=== PATIENT | female | born 2000 | race Two or more races ===

== ENCOUNTER 2024-02-07 15:32 | Emergency (ER) | payer MEDICAID, SELFPAY ==
[2024-02-07 15:37] VITALS: PULSE 99; O2SAT 99; BMI 26.2
[2024-02-07 15:39] VITALS: PULSE 77; RESP 16; TEMP 36.8; O2SAT 100; BMI 22.4
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
== END 2024-02-07 18:40 | disposition home or self-care (01) ==
PROVIDERS: Emergency Provider Emergency Medicine; PCP Family Medicine
DX: S09.90XA Unspecified injury of head, initial encounter (principal); R07.9 Chest pain, unspecified; V89.2XXA Person injured in unspecified motor-vehicle accident, traffic, initial encounter
CPT/HCPCS: 70450; 71046; 99284

== ENCOUNTER 2024-05-03 15:38 | Emergency (ER) | payer MEDICAID, SELFPAY ==
[2024-05-03 15:47] VITALS: BP 151/86; PULSE 72; PULSE 75; RESP 16; RESP 18; TEMP 37.1; O2SAT 100; O2SAT 98; BMI 28.3
--- NOTE | 2024-05-03 15:50 | PD.EDSUICD ---
ED Psych RME/HPI General Chief Complaint: Suicidal Stated Complaint: SI Time Seen by Provider: 05/03/24 15:45 Arrival date/time: 05/03/24 15:38 23 year old female with past medical history of Depression, present to emergency room via EMS for medical evaluation. per EMS report patient has a plan to harm self by taking her depression medication. pt is on a 5150 hold. per patient report recent change in medication paxil to zoloft last week. SEVERITY: Symptoms are described as being severe with limitations on activities of daily living CONTEXT: The patient is unable to identify any inciting events. DURATION/TIMING: The symptoms started approximately 1 day ASSOCIATED SYMPTOMS: The patient is unable to identify any other associated symptoms. MODIFYING FACTORS: The patient is unable to identify any alleviating or aggravating symptoms. PERTINENT ROS: no chest pain/shortness of breath no nausea,vomiting, diarrhea, no dizziness/headache no rash no loc/syncope episode REVIEW OF SYSTEMS: See History of Present Illness - with the exception of those mentioned in the history of present illness, all other systems reviewed and reported as negative GENERAL: In general the patient is awake, interactive, in an emergency department gurney, wearing a hospital gown. HEAD/EARS/EYES/NOSE/THROAT: normo-cephalic, atraumatic, extra-ocular eye movements are intact, pupils are equal round and reactive to light, mucus membranes are moist, no nystagmus, anicteric, palpebral conjunctiva is pink. Thyroid is not tender, not enlarged and not nodular, no carotid bruit, no jugular venous distension, trachea is midline, uvula unremarkable, oropharyngeal cavity unremarkable. CARDIOVASCULAR: regular rate and regular rhythm, no murmurs/rubs or gallops, normal S1 and S2, heart sounds are not distant, strong pulses in all four extremities that are equal and symmetric bilateral upper and lower extremities. CHEST/PULMONARY: normal chest rise and fall, good air movement, clear to auscultation bilaterally without rhonchi, rales or wheezing, normal inspiratory to expiratory ratios without evidence of respiratory distress. ABDOMEN: soft, not tender, no rebound, no guarding, normal bowel sounds that are present in all four quadrants, no pulsatile masses, BACK: no c/t/l spine tenderness, normal range of motion without reproducible pain, no costoverterbral angle tenderness. NEUROLOGICAL: cranio-facial features are symmetric, speech is clear, no obvious word finding difficulties and answers to questions are provided without hesitation or difficulty, normal motor and sensory function of the bilateral upper and lower extremities that are equal and symmetric left and right, no evidence of cerebellar dysfunction. Extremity: no tenderness to palpation over the long bones or large joints of the bilateral upper and lower extremities, no joint swelling, no joint erythema, no signs of trauma, no unilateral leg swelling and no peripheral edema. SKIN: warm, dry, well-perfused, no jaundice, no rash, normal capillary refill, no telangiectasias or petechia. PSYCH: tearful, cooperative, abnormal affect and behavior, thought process abnormal. Related Data Home Medications ?Medication ?Instructions ?Recorded ?Confirmed prenat.vits,liv,ivb-[id number] 1 tab PO QDAY 09/27/20 03/18/21 Previous Rx's ?Medication ?Instructions ?Recorded amoxicillin 875 mg-potassium 1 tab PO BID #14 tabs 06/24/23 clavulanate 125 mg tablet ibuprofen 800 mg tablet 800 mg PO TID PRN pain #30 tabs 06/24/23 tramadol 50 mg tablet 50 mg PO TID PRN pain #20 tabs 06/26/23 ibuprofen 600 mg tablet 600 mg PO Q6H #30 tabs 02/07/24 Allergies Allergy/AdvReac Type Severity Reaction Status Date / Time No Known Allergies Allergy Verified 02/07/24 15:44 Course Course Course Narrative: basic labs, drug/alcohol hcg crisis evaluation 5150 hold Thoughts are linear and organized, and patient has no AH, VH, or HI. Prior suicide attempt by 5 years ago being seen at [facility]? Prior Psychiatric Hospitalizations:no? Clinically patient displays no overt toxidrome; they are well appearing, with low suspicion for toxic ingestion given history and exam. Thoughts unlikely 2/2 anemia, hypothyroidism, infection, or ICH. Consult:?Psychiatry to evaluate patient for potential hold for danger to self. Disposition: 5150 hold crisis to evaluated after medical clearance? Quality Measures none Orders Category Date Time Status Psychosocial assessment ONCE Care 05/03/24 15:49 Active Diet Regular Diet 05/03/24 Dinner Active Acetaminophen Stat Lab 05/03/24 15:56 Completed Alcohol, Blood Medical Stat Lab 05/03/24 15:56 Completed Basic Metabolic Panel Stat Lab 05/03/24 15:56 Completed CBC Stat Lab 05/03/24 15:56 Completed Drug Screen,Urine Stat Lab 05/03/24 16:03 Completed HCG Qualitative,Urine Stat Lab 05/03/24 16:03 Completed Salicylate Stat Lab 05/03/24 15:56 Completed Reevaluation(s) Reevaluation #1: Accepted to [facility] per social services assistant? Vital Signs Vital signs: Vital Signs Temperature 98.7 F 05/03/24 15:47 Pulse Rate 75 05/03/24 15:47 Respiratory Rate 18 05/03/24 15:47 Blood Pressure 151/86 H 05/03/24 15:47 Pulse Oximetry (%) 100 05/03/24 15:47 Oxygen Delivery Method Room Air 05/03/24 15:47 Psych Patient data External records reviewed:: [facility] previous records Clinical information provided by:: patient and EMS Social determinants that could affect healthcare access:: mental health Patient has the following chronic illnesses:: depression, PTSD How is presenting disease/condition affected by chronic disease/condition?: exacerbated by Evaluation data The following diagnostics were reviewed and interpreted by me:: lab results Lab and/or radiology exams considered but not ordered:: none Interpretation Summary: medically cleared basic labs, drug wnl Medications / Prescriptions Medications or Prescriptions considered but not ordered:: none Medication administrations:: none Consultations Consultation(s) initiated? (list below): Yes Consultation #1 (Physician, Specialty, Details): crisis is evaluating patient Diagnosis Psych Differential Diagnosis: acute psychosis, suicidal ideation, bipolar disorder, depression, drug-induced psychotic disorder and acute anxiety Most likely diagnosis given after review of the tests above:: SI, psychosis Admission Indicated Admission indicated?: not indicated Admission Request Was there a request for admission?: No Disposition Plan Disposition Plan: Discharge Discharge Attestation Discharge Attestation: The patient and all family members were given an opportunity to ask questions and understood the discharge instructions. Discharge instructions specifically effects, indications for sooner follow up or return to the emergency department, and the expected course of current diagnosis. Patient condition: Stable Discharge Plan Plan Patient Disposition: [facility] Prescriptions/Referrals Prescriptions/Med Rec: No Action prenat.vits,liv,zik-wgdu-gbssz Tablet 1 tab PO QDAY ibuprofen 800 mg tablet 800 mg PO TID PRN (Reason: pain) Qty: 30 0RF amoxicillin-pot clavulanate 875-125 mg tablet 1 tab PO BID Qty: 14 0RF tramadol 50 mg tablet 50 mg PO TID PRN (Reason: pain) Qty: 20 0RF ibuprofen 600 mg tablet 600 mg PO Q6H Qty: 30 0RF Problem List Clinical Impression: Suicidal ideation Patient/Caregiver Discharge Instructions Print Language: Tamazight Stand Alone Forms: Lucia Award Info., Patient Portal Info Letter
[2024-05-03 16:23] LABS: Basophils % (Auto) 0 % (0-2.5); Eosinophils # (Auto) 0.1 Thou/mm3 (0.0-0.5); Eosinophils % (Auto) 1 % (0-10); Hematocrit 41.3 % (36.0-46.0); Hemoglobin 14.3 g/dL (12.0-16.0); Immature Granulocytes % (Auto) 0 % (0-0); Immature Granulocytes Auto 0.04 Thou/mm3 (0.00-0.00); Lymphocytes # (Auto) 3.6 Thou/mm3 (1.0-4.8); Lymphocytes % (Auto) 32 % (10-50); Mean Corpuscular HGB Conc 34.6 g/dl (31.0-37.0); Mean Corpuscular Hemoglobin 31.2 pg (25.0-35.0); Mean Corpuscular Volume 90 fL (80-100); Monocytes # (Auto) 0.7 Thou/mm3 (0.0-0.8); Monocytes % (Auto) 6 % (0-12); Neutrophils # (Auto) 6.7 Thou/mm3 (1.8-7.7); Neutrophils % (Auto) 60 % (37-80); Nucleated Red Blood Cell % 0 /100 WBC (0); Platelet Count 348 Thou/mm3 (140-440); Red Blood Count 4.58 Miln/mm3 (4.00-5.20); White Blood Count 11.1 Thou/mm3 (3.6-11.0)
[2024-05-03 16:30] LABS: Amphetamine/Methamp Scrn,U Negative (Negative); Barbiturate Screen,Urine Negative (Negative); Benzodiazepines Screen,Urine Negative (Negative); Benzoylecgonine Screen, Ur Negative (Negative); Fentanyl Screen,Urine Negative (Negative); Opiate Screen,Urine Negative (Negative); THC Screen,Urine Negative (Negative)
[2024-05-03 16:33] LABS: HCG Qualitative,Urine Negative
[2024-05-03 16:45] LABS: Acetaminophen < 2.0 mcg/mL (10.0-20.0); Alcohol, Blood Medical < 3.0 mg/dL (0-10.0); Anion Gap 9 (7-16); BUN/Creatinine Ratio 13 Ratio (12-20); Blood Urea Nitrogen 8 mg/dL (9-23); Calcium 9.5 mg/dL (8.3-10.6); Carbon Dioxide 26.8 mMol/L (20.0-31.0); Chloride 102 mMol/L (98-107); Creatinine (Component) 0.6 mg/dL (0.6-1.3); Estimated Creatinine Clearance 116.1 mL/min (>60); Glucose 92 mg/dL (74-106); Osmolality,Calculated 273 (275-295); Potassium 3.9 mMol/L (3.4-5.1); Salicylate < 3.0 mg/dL; Sodium 138 mMol/L (136-145); eGFR > 60 See Note
--- NOTE | 2024-05-03 17:42 | PC.CC ---
Patient is a 23 year-old female BIBA from [facility]) on a 5150-Hold by [employer] Adviser Brenda Chambers. Giulia STUART made [id number] contact with patient. ASW introduced self, role, and reason for visit. Patient appeared alert and oriented to self, location, and situation. Patient was pleasant and engaged in initial assessment. Patient reports she began to notice a change in her mood this past week and has progressively worsen. Patient is having suicidal ideation with plan and intention of taking her medication to go to sleep and not wake up. Patient states that she had an attempt in 2023 where to took all her psychotropic medication but did not seek medical help and threw them up. Patient is connected to [facility], her psychiatrist is Dr. Preston and her therapist is Love. She disclosed that today during her therapeutic session she expressed her suicidal ideations to her therapist and the crisis team was called out to the clinic. Patient denied visual and auditory hallucinations and homicidal ideations. Patient recently had a medication change from Paxil to Zoloft; however, has not started the Zoloft. ASW provided advisment to patient and informed her of the discharge plan for her to go to an LPS facility. Patient was receptive of information. ASW provided update to Dr. James, DALIA Bryant, director business Sara, DEBBIE Schaeffer. ASW will be sending referral to LPS facilities via [employer].
[2024-05-03 18:36] VITALS: BP 123/78; PULSE 76; RESP 16; TEMP 37; O2SAT 100
--- NOTE | 2024-05-03 18:40 | PC.CC ---
Patient was accepted to [facility] Magaly MARTINEZ provided accepting information. Dr. Rubio has accepted patient into [address]. Patient was provided with accepting information. Dr. Sanchez, wildland fire operations specialist Viola, and DEBBIE Schaeffer were made aware of discharge plan. ASW arranging transportation.
== END 2024-05-03 20:23 ==
PROVIDERS: Physician Assistant; Emergency Provider Emergency Medicine
DX: R45.851 Suicidal ideations (principal); F32.A Depression, unspecified; F43.10 Post-traumatic stress disorder, unspecified
CPT/HCPCS: 36415; 80048; 80307; 80320; 80329; 81025; 85025; 90839; 96127; 99285; G0480